=== PATIENT | male | born 1950 | race Caucasian/White ===

== ENCOUNTER 2020-03-20 03:03 | Observation (INO) | payer OTHER ==
[~2020-03-20] VITALS: Ht 177.8 cm; Wt 89.8 kg
[2020-03-20 03:18] VITALS: Ht 177.8 cm; Wt 89.8 kg
[2020-03-20 04:15] LABS: CARBON DIOXIDE 22.9 mmol/L (21-32); CHLORIDE SERUM 106 mmol/L (98-107); CREATININE SERUM 2.1 mg/dL (0.7-1.3); GLUCOSE SERUM 122 mg/dL (74-106); POTASSIUM SERUM 3.8 mmol/L (3.5-5.1); SODIUM SERUM 140 mmol/L (136-145)
[2020-03-20 04:19] LABS: ALBUMIN 3.8 g/dL (3.4-5.0); ALKALINE PHOSPHATASE 93 U/L (46-116); ALT/SGPT 46 U/L (16-63); AST/SGOT 25 U/L (15-37); BASOPHIL % 0.7 % (0-2); BILIRUBIN TOTAL 1.02 mg/dL (0.20-1.00); PLATELET COUNT 246 x10^3mcL (130-400); RED CELL DISTRIBUTION WIDTH 13.6 % (11.5-14.5)
[2020-03-20] MEDS ORDERED: HUMALOG100 U/ML SC (05:41)
[2020-03-20] MEDS ORDERED: TOUJEO MAX300 UNIT/1 SQ (05:41)
[2020-03-20] MEDS ORDERED: AMLODIPINE BES1 CAP PO (05:41)
[2020-03-20] MEDS ORDERED: ROCALTROL0.25 MCG PO (05:42)
[2020-03-20] MEDS ORDERED: RISEDRONATE SOD35 M1 PO (05:42)
[2020-03-20] MEDS ORDERED: QUINAPRIL20 MG PO (05:42)
[2020-03-20] MEDS ORDERED: CARVEDILOL12.5 M1 PO (05:42)
[2020-03-20] MEDS ORDERED: PRAVACHOL80 MG PO (05:42)
[2020-03-20 10:28] VITALS: BP 144/85
[2020-03-20 14:03] VITALS: BP 131/76
[2020-03-20 15:42] VITALS: BP 131/76
== END 2020-03-20 16:04 | disposition home or self-care (01) ==
LOC: ED 03:03 → DU 06:17
PROVIDERS: Emergency Medicine; ADMIT Internal Medicine Pulmonary Disease; ATTEND Internal Medicine Pulmonary Disease
DX: R07.89 Other chest pain (principal); I10 Essential (primary) hypertension; E11.9 Type 2 diabetes mellitus without complications; E78.00 Pure hypercholesterolemia, unspecified
CPT/HCPCS: 82962; G0378; J1815; Q0092